=== PATIENT | female | born 1975 | race Caucasian/White ===

== ENCOUNTER 2016-08-26 21:52 | Emergency (ER) | payer MEDICAID, OTHER ==
[~2016-08-26] VITALS: Ht 165.1 cm; Wt 64.0 kg
[~2016-08-26 21:52] MED LIST: FERR325T30 PO; FISH1CAP10 PO; VITA1TAB18 PO
[2016-08-27] MEDS ORDERED: IBUPROFEN 600MG TABLET PO ONE (03:00)
[2016-08-27] MEDS ORDERED: BACITRACIN ZINC OINT UDPKT TOP ONE (03:00)
[2016-08-27] MEDS ORDERED: TETANUS, DIPHTHERIA, PERTUSSIS VAC/PF 0.5ML (>7YR OLD) IM ONE (03:00)
[2016-08-27 04:17] VITALS: BP 110/77
== END 2016-08-27 04:52 | disposition home or self-care (01) ==
LOC: ER 23:33
DX: S61.012A Laceration without foreign body of left thumb without damage to nail, initial encounter (principal); I95.9 Hypotension, unspecified; Z98.890 Other specified postprocedural states; W26.0XXA Contact with knife, initial encounter; Y93.89 Activity, other specified; Y92.89 Other specified places as the place of occurrence of the external cause; Y99.8 Other external cause status
CPT/HCPCS: 73140; 81025; 90471; 90715; 99284; A4217; Z7610

== ENCOUNTER 2018-09-11 16:37 | Inpatient (IN) | payer MEDICAID ==
[~2018-09-11] VITALS: Ht 157.5 cm; Wt 54.4 kg
[~2018-09-11 16:37] MED LIST changes: +FISH OIL 1,01 CAP.EC PO; -FISH1CAP10 PO
[2018-09-11] MEDS ORDERED: SODIUM CHLORIDE 0.9% 1,000 ML IV ONE (17:18)
[2018-09-11] MEDS ORDERED: ONDANSETRON HCL 4MG/2ML INJ IV ONE (17:30)
[2018-09-11] MEDS ORDERED: MORPHINE SULFATE 4 MG/ML CPJ (NOT FOR IM USE) IV ONE (17:30)
[2018-09-11 17:42] LABS: CLARITY URINE CLOUDY (CLEAR); COLOR URINE YELLOW (YELLOW); KETONES URINE TRACE (NEGATIVE); LEUKOCYTE ESTERASE URINE TRACE (NEGATIVE); NITRITE URINE NEGATIVE (NEGATIVE); OCCULT BLOOD URINE 3+ (NEGATIVE); PH URINE 5.5 (4.5-8.0); PROTEIN URINE TRACE (NEGATIVE); SPECIFIC GRAVITY URINE 1.028 (1.005-1.030)
[2018-09-11 18:04] LABS: CHLORIDE 108 mEq/L (98-107)
[2018-09-11 18:07] LABS: BASOPHILS % 1.4 % (0.0-2.0); EOSINOPHILS % 1.4 % (0.0-5.0); HEMATOCRIT. 28.7 % (36.0-48.0); HEMOGLOBIN. 8.7 g/dL (12.0-16.0); LYMPHOCYTES % 30.9 % (20.0-50.0); MEAN CORPUSCULAR HEMOGLOBIN 21.4 pg (28.0-32.0); MEAN CORPUSCULAR VOLUME 70.6 fL (81.0-99.0); MEAN PLATELET VOLUME 8.2 fl (7.4-10.4); NEUTROPHILS % 59.3 % (40.0-76.0); PLATELET 315 x1000/uL (130-400); RED BLOOD CELL COUNT 4.06 mill/uL (4.2-5.4); RED CELL DISTRIBUTION WIDTH 17.1 % (11.6-14.6)
[2018-09-11] MEDS ORDERED: CEFTRIAXONE 1 G PREMIX 50 ML IV ONE (22:00)
[2018-09-11 22:48] LABS: HEMATOCRIT 26.1 % (36.0-48.0); HEMOGLOBIN 7.9 g/dL (12.0-16.0)
[2018-09-11] MEDS ORDERED: CLONIDINE 0.1MG TABLET PO PRN (23:15)
[2018-09-11] MEDS ORDERED: IPRATROPIUM/ALBUTEROL 0.5-3(2.5)MG/3ML NEB INH PRN (23:15)
[2018-09-11] MEDS ORDERED: HYDROCODONE/ACETAMINOPHEN 5/325MG TABLET PO PRN (23:15)
[2018-09-11] MEDS ORDERED: MAGNESIUM/ALUMINUM HYDROXIDE/SIMETHICONE 30ML UDC PO PRN (23:15)
[2018-09-11] MEDS ORDERED: ONDANSETRON HCL 4MG/2ML INJ IV PRN (23:15)
[2018-09-11] MEDS ORDERED: ACETAMINOPHEN 325MG TABLET PO PRN (23:15)
[2018-09-12] VITALS (14 sets, daily range): BP systolic 76–121; BP diastolic 30–69
[2018-09-12 00:39] LABS: CHLORIDE 110 mEq/L (98-107)
[2018-09-12 00:45] LABS: TOTAL IRON BINDING CAPACITY 352 ug/dL (250-450)
[2018-09-12 06:28] LABS: BASOPHILS % 1.7 % (0.0-2.0); EOSINOPHILS % 2.8 % (0.0-5.0); HEMATOCRIT. 23.7 % (36.0-48.0); HEMOGLOBIN. 7.2 g/dL (12.0-16.0); LYMPHOCYTES % 45.3 % (20.0-50.0); MEAN CORPUSCULAR HEMOGLOBIN 21.4 pg (28.0-32.0); MEAN CORPUSCULAR VOLUME 70.2 fL (81.0-99.0); MEAN PLATELET VOLUME 7.9 fl (7.4-10.4); MONOCYTES % 11.4 % (2.0-8.0); NEUTROPHILS % 38.8 % (40.0-76.0); PLATELET 245 x1000/uL (130-400); RED BLOOD CELL COUNT 3.38 mill/uL (4.2-5.4); RED CELL DISTRIBUTION WIDTH 17.1 % (11.6-14.6)
[2018-09-12 06:57] LABS: LDL CHOLESTEROL 78 mg/dL (5-100)
[2018-09-12 06:58] LABS: CREATINE KINASE 81 IU/L (26-192); HDL CHOLESTEROL 65 mg/dL (40-59)
[2018-09-12 07:00] LABS: CREATINE KINASE MB FRACTION < 1.0 ng/mL (0.5-3.6)
[2018-09-12] MEDS: FERROUS SULFATE 325MG TABLET PO SCH (08:52)
[2018-09-12 09:11] LABS: *AMPHETAMINES SCREEN URINE NEGATIVE (NEGATIVE); *BARBITURATES SCREEN URINE NEGATIVE (NEGATIVE); *BENZODIAZEPINES SCREEN URINE NEGATIVE (NEGATIVE); *COCAINE SCREEN URINE NEGATIVE (NEGATIVE); CANNABINOID URINE SCREEN NEGATIVE (NEGATIVE); PHENCYCLIDINE URINE SCREEN NEGATIVE (NEGATIVE)
[2018-09-12 09:12] LABS: METHADONE URINE SCREEN NEGATIVE (NEGATIVE)
[2018-09-12] MEDS ORDERED: LACTATED RINGERS 1,000 ML IV SCH (09:15)
[2018-09-12] MEDS ORDERED: DIPHENHYDRAMINE 25MG CAPSULE PO NR (09:15)
[2018-09-12] MEDS ORDERED: ACETAMINOPHEN 325MG TABLET PO NR (09:15)
[2018-09-12 09:40] LABS: OPIATES URINE SCREEN PRESUMTIVE POSITIVE (NEGATIVE)
[2018-09-12 11:14] LABS: PROTHROMBIN TIME 10.5 sec (9.1-11.1)
[2018-09-12] MEDS: LACTATED RINGERS 1,000 ML IV SCH (11:18)
[2018-09-12 11:27] LABS: HCG SCREEN NEGATIVE
[2018-09-12] MEDS ORDERED: HYDROCODONE/ACETAMINOPHEN 10/325MG TABLET PO PRN (19:00)
[2018-09-12] MEDS ORDERED: CEFTRIAXONE 1 G PREMIX 50 ML IV SCH ×2 (20:00→22:00)
[2018-09-12 20:01] LABS: HEMATOCRIT 30.8 % (36.0-48.0); HEMOGLOBIN 9.5 g/dL (12.0-16.0)
[2018-09-12 20:19] LABS: CREATINE KINASE 84 IU/L (26-192)
[2018-09-12 20:20] LABS: CREATINE KINASE MB FRACTION < 1.0 ng/mL (0.5-3.6)
[2018-09-13] VITALS: BP 98/60
[2018-09-13 04:00] VITALS: BP 98/51
[2018-09-13 08:00] VITALS: BP 89/56
[2018-09-13 08:00] LABS: BASOPHILS % 1.3 % (0.0-2.0); EOSINOPHILS % 3.4 % (0.0-5.0); HEMATOCRIT. 30.3 % (36.0-48.0); HEMOGLOBIN. 9.4 g/dL (12.0-16.0); LYMPHOCYTES % 38.9 % (20.0-50.0); MEAN CORPUSCULAR HEMOGLOBIN 22.7 pg (28.0-32.0); MEAN CORPUSCULAR VOLUME 73.1 fL (81.0-99.0); MEAN PLATELET VOLUME 8.2 fl (7.4-10.4); MONOCYTES % 11.9 % (2.0-8.0); NEUTROPHILS % 44.5 % (40.0-76.0); PLATELET 256 x1000/uL (130-400); RED BLOOD CELL COUNT 4.15 mill/uL (4.2-5.4); RED CELL DISTRIBUTION WIDTH 18.4 % (11.6-14.6)
[2018-09-13 08:05] LABS: CHLORIDE 111 mEq/L (98-107)
[2018-09-13 08:13] LABS: TOTAL IRON BINDING CAPACITY 334 ug/dL (250-450)
[2018-09-13] MEDS: FERROUS SULFATE 325MG TABLET PO SCH (09:23)
[2018-09-13] MEDS: LACTATED RINGERS 1,000 ML IV SCH ×3 (09:23→09:58)
[2018-09-13 09:56] LABS: VITAMIN B12 SERUM 639 pg/mL (211-911)
[2018-09-13 11:29] LABS: FERRITIN < 5 ng/mL (10-291)
[2018-09-13 12:00] VITALS: BP 95/57
[2018-09-13 15:27] VITALS: BP 95/57
[2018-09-13 16:00] VITALS: BP_SYST 95; BP_SYST 98; BP_DIAS 57; BP_DIAS 64
[2018-09-15 13:06] LABS: HIV SCREEN 4G Non Reactive (Non Reactive)
[2018-09-16 08:16] LABS: CHLAMYDIA TRACHOMATIS NAA Negative (Negative); NEISSERIA GONORRHOEAE NAA Negative (Negative)
== END 2018-09-13 17:40 | disposition home or self-care (01) | DRG 532 ==
LOC: ER 16:37 → 6WST 22:48 → EDBEDREQTM 22:51 → EDBEDREQ 22:51 → ENRESERV 23:18
PROVIDERS: ADMIT Internal Medicine; ATTEND Internal Medicine
PROC: 30233N1 Transfusion of Nonautologous Red Blood Cells into Peripheral Vein, Percutaneous Approach (ICD-10-PCS; principal; 2018-09-12)
DX: D25.9 Leiomyoma of uterus, unspecified (principal); I95.9 Hypotension, unspecified; N92.0 Excessive and frequent menstruation with regular cycle; D64.9 Anemia, unspecified; N39.0 Urinary tract infection, site not specified; Z98.891 History of uterine scar from previous surgery; Z79.899 Other long term (current) drug therapy
CPT/HCPCS: 36415; 76830; 76856; 80048; 80061; 80305; 82550; 82553; 82607; 82728; 82746; 83540; 83550; 83735; 84443; 84484; 84703; 85014; 85018; 85044; 86850; 86900; 86920; 87389; 87491; 87591; 93970; 96361; 96365; 96375; 99285; J0696; J2270; J2405; J7030; J7050; J7120; P9016; Q0163

== ENCOUNTER 2022-07-21 01:54 | Emergency (ER) | payer MEDICAID ==
[~2022-07-21] VITALS: Ht 160 cm; Wt 59.4 kg
[2022-07-21 05:45] VITALS: BP 121/69
== END 2022-07-21 05:50 | disposition home or self-care (01) ==
LOC: ER 01:54
DX: T19.2XXA Foreign body in vulva and vagina, initial encounter (principal); X58.XXXA Exposure to other specified factors, initial encounter; Y93.89 Activity, other specified; Y92.9 Unspecified place or not applicable; Y99.8 Other external cause status
CPT/HCPCS: 99284; Z7610; 99281